=== PATIENT | female | born 1940 | race Caucasian/White ===

== ENCOUNTER 2018-02-04 15:01 | Inpatient (IN) ==
[2018-02-04 15:44] LABS: Basophils # 0.1 10*3/uL (0.0-0.2); Basophils % 1.2 % (0.0-0.8); Eosinophils # 0.4 10*3/uL (0.0-0.87); Eosinophils % 8.9 % (0.00-10.9); Hematocrit 34.8 VOL% (35.7-47.0); Hemoglobin 11.2 GM/DL (12.0-16.0); Immature Granulocytes % 0.5 %; Immature Granulocytes Absolute 0.02 #; Lymphocytes # 0.9 10*3/uL (1.4-4.0); Mean Corpuscular HGB Conc 32.2 GM/DL (32-36); Mean Corpuscular Hemoglobin 31 PG (27-34); Mean Corpuscular Volume 97.2 FL (87-102); Mean Platelet Volume 9.7 FL (9.6-12.0); Monocytes # 0.9 10*3/uL (0.11-0.8); Monocytes % 20.8 % (1.7-12.7); Neutrophils % 47.6 % (38.7-73.9); Platelet Count 238 T/CUMM (130-400); Red Blood Count 3.58 MC/CUMM (3.8-5.5); Red Cell Distribution Width 14.2 % (9.3-17.3); White Blood Count 4.3 T/CUMM (4-12)
[2018-02-04 15:50] LABS: Apearance,Urine CLEAR (Clear); Bilirubin,Urine Negative (Negative); Blood, Urine Negative (Negative); Glucose,Urine (UA) >=500 mg/dL (Negative); Ketones,Urine Negative (Negative); Mucus,Urine Occasional /LPF (Occasional); Nitrite,Urine Negative (Negative); Protein,Urine Negative; RBC,Urine <1 /HPF (0-4); Urine Color Yellow (Yellow); Urine Specific Gravity 1.027 (1.001-1.035); Urine Urobilinogen < 2.0 EU/DL (0.2-1.0); WBC,Urine 3 /HPF (0-6)
[2018-02-04 15:53] LABS: PT Patient Result 10.5 SECS; Partial Thromboplastin Time 27.5 SECS (0-40)
[2018-02-04 16:04] LABS: Alanine Aminotransferase 38 U/L (13-56); Albumin 3.3 G/DL (3.4-5.0); Alkaline Phosphatase 63 U/L (45-117); Aspartate Amino Transferase 34 U/L (0-37); Bilirubin,Total < 0.39 MG/DL (0.2-1.0); Blood Urea Nitrogen 21 MG/DL (7-18); Glucose 159 MG/DL (74-106); Osmolality,Calculated 284.4 MOS/KG (273-304); Potassium 3.9 MMOL/L (3.5-5.1); Sodium 140 MMOL/L (136-145); Total Protein 7.2 G/DL (6.4-8.3)
[2018-02-04 16:05] LABS: Troponin I < 0.015 NG/ML (0.00-0.045)
[2018-02-04 16:24] LABS: Eosinophils 10 % (0-10); Lymphocytes 17 % (20-55); Segmented Neutrophils 47 % (50-85); Total Cells Counted 100
[2018-02-04] MEDS ORDERED: DEXTROSE 50% 25 GM/50 ML VIAL IV PRN (17:04)
[2018-02-04] MEDS ORDERED: GLUCAGON 1 MG VIAL IM PRN (17:04)
[2018-02-04] MEDS ORDERED: ACETAMINOPHEN 325 MG TABLET PO PRN (17:04)
[2018-02-04] MEDS: SODIUM CHLORIDE 0.9% 1,000 ML IV SCH (20:00)
[2018-02-04] MEDS ORDERED: INFLUENZA VIRUS VACCINE 0.5 ML SYRINGE IM ONE (21:00)
[2018-02-04] MEDS: INSULIN LISPRO 100 UNIT/ML SUBCUT SCH (21:47)
[2018-02-04] MEDS: DOCUSATE SODIUM 100 MG CAPSULE PO SCH (21:48)
[2018-02-05] MEDS: SODIUM CHLORIDE 0.9% 1,000 ML IV SCH ×2 (03:55→17:35)
[2018-02-05] MEDS: ONDANSETRON 4 MG/2 ML VIAL IV PRN ×2 (07:21→14:45)
[2018-02-05] MEDS: INSULIN LISPRO 100 UNIT/ML SUBCUT SCH ×4 (11:27→21:13)
[2018-02-05] MEDS: DOCUSATE SODIUM 100 MG CAPSULE PO SCH ×2 (14:28→21:09)
[2018-02-05] MEDS: PANTOPRAZOLE 40 MG TABLET PO SCH (14:29)
[2018-02-05] MEDS: METOPROLOL SUCCINATE XL 50 MG TABLET PO SCH (14:40)
[2018-02-05] MEDS: ESCITALOPRAM 10 MG TABLET PO SCH (14:40)
[2018-02-05] MEDS: METHENAMINE HIPPURATE 1 GM TABLET PO SCH (17:33)
[2018-02-05] MEDS ORDERED: rOPINIRole 1 MG TABLET PO SCH (18:00)
[2018-02-05] MEDS ORDERED: LEFLUNOMIDE 10 MG TABLET PO SCH (18:00)
[2018-02-05] MEDS ORDERED: AMITRIPTYLINE 75 MG TABLET PO SCH (20:00)
[2018-02-05] MEDS: POTASSIUM CHLORIDE 10 MEQ TABLET PO SCH (21:08)
[2018-02-05] MEDS: GABAPENTIN 300 MG CAPSULE PO SCH (21:08)
[2018-02-06] MEDS: SODIUM CHLORIDE 0.9% 1,000 ML IV SCH (01:50)
[2018-02-06] MEDS ORDERED: LACTOBACILLUS ACIDOPHILUS/BULGARICUS CAPLET PO SCH (06:00)
[2018-02-06] MEDS ORDERED: [UNRECOGNIZED DRUG - OTHER] PO SCH (06:00)
[2018-02-06 07:40] VITALS: BP 132/75
[2018-02-06] MEDS ORDERED: ASPIRIN EC 81 MG TABLET PO SCH (08:00)
[2018-02-06] MEDS ORDERED: GLIMEPIRIDE 2 MG TABLET PO SCH (08:00)
[2018-02-06] MEDS ORDERED: ESCITALOPRAM 10 MG TABLET PO SCH (08:00)
[2018-02-06] MEDS ORDERED: METOPROLOL SUCCINATE XL 50 MG TABLET PO SCH (08:00)
[2018-02-06] MEDS ORDERED: CALCIUM (CARBONATE) 600 MG TABLET PO SCH (08:00)
[2018-02-06] MEDS ORDERED: CLOPIDOGREL 75 MG TABLET PO SCH (09:00)
[2018-02-06] MEDS: INSULIN LISPRO 100 UNIT/ML SUBCUT SCH (09:11)
[2018-02-06] MEDS: METHENAMINE HIPPURATE 1 GM TABLET PO SCH (09:16)
[2018-02-06] MEDS: METOPROLOL SUCCINATE XL 50 MG TABLET PO SCH (09:17)
[2018-02-06] MEDS: ESCITALOPRAM 10 MG TABLET PO SCH (09:19)
[2018-02-06] MEDS: GABAPENTIN 300 MG CAPSULE PO SCH (09:19)
[2018-02-06] MEDS: PANTOPRAZOLE 40 MG TABLET PO SCH (09:20)
[2018-02-06] MEDS: POTASSIUM CHLORIDE 10 MEQ TABLET PO SCH (09:20)
[2018-02-06] MEDS ORDERED: Empagliflozin [Jardiance] 10 MG PO SCH (10:00)
[2018-02-06] MEDS ORDERED: CHOLECALCIFEROL 1,000 UNIT TABLET PO SCH (10:00)
[2018-02-06] MEDS ORDERED: sitaGLIPtin 100 MG TABLET PO SCH (10:00)
[2018-02-06] MEDS ORDERED: TOLTERODINE LA 4 MG CAPSULE PO SCH (10:00)
[2018-02-06] MEDS: DOCUSATE SODIUM 100 MG CAPSULE PO SCH (11:12)
== END 2018-02-06 09:55 | disposition home or self-care (01) | DRG 69 ==
LOC: N.ED 15:01 → N.EDINP 17:03 → N.TELES 18:54
PROVIDERS: ADMIT Family Medicine; ATTEND Family Medicine